=== PATIENT | male | born 1940 | race Caucasian/White ===

== ENCOUNTER → 2019-03-28 | Outpatient (CLI) | payer MEDICARE, BC ==
[2019-03-28 13:27] LABS: Potassium 4.4 mmol/L (3.5-5.1)
[2019-03-28 13:47] LABS: Basophils % (A) 0 %; Eosinophils # (A) 0.1 k/uL (0-0.7); Eosinophils % (A) 2 %; HCT 36.4 % (39.0-53.0); HGB 12.2 gm/dL (13.0-17.5); Lymphocytes # (A) 1.5 k/uL (1.0-4.8); Lymphocytes % (A) 27 %; MCH 31.3 pg (25.0-35.0); MCHC 33.5 g/dL (31.0-37.0); MCV 93.5 fL (80.0-100.0); Monocytes # (A) 0.3 k/uL (0-1.0); Monocytes % (A) 6 %; Neutrophils # (A) 3.4 k/uL (1.3-7.7); Neutrophils % (A) 62 %; Platelet Count 162 k/uL (150-450); RDW 12.9 % (11.5-15.5); WBC 5.5 k/uL (3.8-10.6)
== END | disposition home or self-care (01) ==
LOC: LABPAT 12:11
PROVIDERS: ATTEND Surgery
DX: Z01.812 Encounter for preprocedural laboratory examination (principal); I70.235 Atherosclerosis of native arteries of right leg with ulceration of other part of foot
CPT/HCPCS: 36415; 80051; 82565; 84520; 85025

== ENCOUNTER → 2019-04-04 | Day surgery (SDC) | payer MEDICARE, BC ==
[2019-03-29 11:53] VITALS: BMI 23.7
[~2019-04-04] MED LIST: SODIUM CHLORIDE 0.9% 1,000 ML in EMPTY BAG 1 BAG IV ONE; diphenhydrAMINE 50 MG/ML 1 ML VIAL ONE
[2019-04-04 06:26] VITALS: BP 192/93; PULSE 55; RESP 18; TEMP 98.1
[2019-04-04 06:37] LABS: INR 2.5 (<1.2); Prothrombin Time 24.2 sec (9.0-12.0)
--- NOTE | 2019-04-04 08:38 | P.PN ---
Progress Note - Text Progress Note Date: 04/04/19 INR elevated at 2.5. Patient unsure when last dose of coumadin taken. Risk of bleeding is high and therefore we will reschedule aortogram for later date. Patient discharged home.
== END ==
LOC: CATHCVL 05:57
PROVIDERS: ATTEND Surgery
DX: I70.221 Atherosclerosis of native arteries of extremities with rest pain, right leg (principal); L97.519 Non-pressure chronic ulcer of other part of right foot with unspecified severity; Z53.8 Procedure and treatment not carried out for other reasons; Z89.512 Acquired absence of left leg below knee; Z79.01 Long term (current) use of anticoagulants; Z79.899 Other long term (current) drug therapy
CPT/HCPCS: 85610; J1200

== ENCOUNTER 2019-04-07 10:36 | Day surgery (SDC) | payer MEDICARE, BC ==
[~2019-04-07 10:36] MED LIST changes: +ALPRAZolam 0.25 MG TAB PO PRN; +ASPIRIN 325 MG TAB PO STA; -diphenhydrAMINE 50 MG/ML 1 ML VIAL ONE
[2019-04-07 11:11] VITALS: RESP 16
[2019-04-07] MEDS ORDERED: METOPROLOL TARTRATE 50 MG TAB ONE (11:13)
[2019-04-07] MEDS ORDERED: SODIUM CHLORIDE 0.9% 1,000 ML IV ONE (11:15)
[2019-04-07 12:30] LABS: INR 1.2 (<1.2); Prothrombin Time 12.5 sec (9.0-12.0)
[2019-04-07] MEDS ORDERED: fentaNYL (PF) 50 MCG/ML 2 ML AMP IV ONE (14:46)
[2019-04-07] MEDS ORDERED: MIDAZOLAM (PF) 2 MG/2 ML VIAL IVP ONE (14:46)
[2019-04-07] MEDS ORDERED: LIDOCAINE 1% INJ 10MG/ML (20 ML MDV) SQ ONE (14:47)
[2019-04-07] MEDS ORDERED: IOPAMIDOL-250 100ML BTL INTRAARTER ONE (15:00)
[2019-04-07] MEDS ORDERED: SODIUM CHLORIDE 0.9% 1,000 ML IV SCH (15:30)
[2019-04-07 16:18] VITALS: PULSE 48
--- NOTE | 2019-04-07 17:11 | P.OP ---
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 Procedure: Aortogram with bilateral lower extremity runoffs via left common femoral artery access under ultrasound guidance Surgeon: Noni Anesthesia: Moderate sedation times 13 minutes Estimated blood loss: 5 mL Complications: None Condition: Stable Findings: Aorta: Widely patent with atherosclerotic calcified disease. Bilateral renal arteries are patent with out any significant stenosis. Iliacs: Bilateral common, internal and external iliac arteries are patent. There is evidence of atherosclerotic disease without stenosis Femorals: Bilateral common, profundus arteries are patent without significant stenosis. The right superficial femoral artery has a chronic total occlusion of the distal aspect just before the popliteal with reconstitution immediately. Popliteal: Right popliteal artery is patent as well as left popliteal artery is patent without significant stenosis. Tibials: Right trifurcation is patent with significant atherosclerotic disease and calcification. There is flow to the ankle and foot via the anterior tibial and peroneal arteries. 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 Operative narrative: After written informed consent was obtained the patient all risks benefits competitions were described the patient is brought to the [facility] and laid in a supine position. The area of the groin was prepped and draped in the usual sterile fashion. Local anesthesia with moderate sedation was performed with continuous pulse ox monitoring and EKG monitoring. Utilizing ultrasound the left common femoral artery was visualized and shown to be patent without any significant plaque. Utilizing a multipurpose needle under ultrasound guidance the artery was accessed. Guidewire was placed followed by 5-Tamazight sheath. 035 Glidewire was then placed into the aorta followed by pigtail catheter. Angiogram was then obtained of the aorta. Catheter was then placed at the bifurcation and lower extremity runoffs were obtained. Once completed all guidewires, catheters and sheaths were removed and pressure was placed for hemostasis. Patient tolerated procedure well was sent to PACU for recovery
[2019-04-07 17:56] VITALS: BP 162/62; BMI 23.0
[2019-04-07 18:59] VITALS: TEMP 97.9
--- NOTE | 2019-04-09 21:19 | IR ---
EXAMINATION TYPE: IR angio abdominal w runoff DATE OF EXAM: 04/07/2019 CLINICAL HISTORY: Right leg pain. TECHNIQUE: Fluoroscopy. COMPARISON: None. FINDINGS: Fluoroscopic guidance was provided during abdominal angiogram with runoff procedure perfor med by Dr. Cheney. A total of 0.5 minutes of fluoroscopic time was utilized during the procedure an d several cine runs are saved to PACS. Please refer to procedure note for further details if necessar y as I was not present or performed procedure. IMPRESSION: As Above.
== END 2019-04-07 20:20 | disposition home or self-care (01) ==
LOC: CATHCVL 10:36 → 1SOBS 16:40 → CATHCVL 20:20
PROVIDERS: ATTEND Surgery
DX: I70.291 Other atherosclerosis of native arteries of extremities, right leg (principal); I70.92 Chronic total occlusion of artery of the extremities; L97.519 Non-pressure chronic ulcer of other part of right foot with unspecified severity; Z89.512 Acquired absence of left leg below knee; M19.90 Unspecified osteoarthritis, unspecified site; I11.9 Hypertensive heart disease without heart failure; E78.5 Hyperlipidemia, unspecified; Z79.01 Long term (current) use of anticoagulants; Z79.899 Other long term (current) drug therapy
CPT/HCPCS: 36200; 75625; 75716; 76937; 85610; C1769 ×3; C1894 ×2; J2001; J3010; Q9966; J2250